=== PATIENT | female | born 1950 | race Caucasian/White ===

== ENCOUNTER 2021-07-10 09:48 | Day surgery (SDC) | payer OTHER, BC ==
[2021-07-04 12:20] VITALS: BMI 28.3
[2021-07-10] MEDS: TROPICAMIDE 1% OPHTH SOLN 15 ML BOTTLE ONE ×3 (11:00→11:10)
[2021-07-10] MEDS: CYCLOPENTOLATE 2% OPHTH SOLN 2 ML BOTTLE ONE ×3 (11:00→11:10)
[2021-07-10] MEDS: PHENYLEPHRINE 2.5% OPHTH SOLN 15 ML BOTTLE ONE ×3 (11:00→11:10)
[2021-07-10] MEDS: CIPROFLOXACIN 0.3% EYE DROPS 5 ML BOTTLE ONE ×3 (11:00→11:10)
[2021-07-10 11:11] VITALS: TEMP 98.1
[2021-07-10] MEDS ORDERED: MIDAZOLAM HCL 2 MG/2 ML SINGLE DOSE VIAL ONE (11:40)
[2021-07-10] MEDS ORDERED: TETRACAINE 0.5% OPHTH SOLN 2 ML BOTTLE ONE (12:31)
[2021-07-10] MEDS ORDERED: LIDOCAINE 1% P/F 10 MG/ML VIAL ONE (12:31)
[2021-07-10] MEDS ORDERED: CARBACHOL 0.01% INTRA-OCULAR 1.5 ML VIAL ONE (12:32)
[2021-07-10] MEDS ORDERED: BSS (NA/CA/MG/K) BALANCED SALT SOLUTION OPHTH SOLN 15 ML BOTTLE ONE (12:32)
[2021-07-10] MEDS ORDERED: NEO/POLYMYX B SULF/DEXAMETH OPHTHALMIC 5ML BOTTLE ONE (12:32)
[2021-07-10 13:20] VITALS: BP 120/78; PULSE 77
== END 2021-07-10 13:00 | disposition home or self-care (01) ==
LOC: FASU 09:48
PROVIDERS: ATTEND Ophthalmology
PROC: 08RJ3JZ Replacement of Right Lens with Synthetic Substitute, Percutaneous Approach (ICD-10-PCS; principal; 2021-07-10 12:12)
DX: H26.8 Other specified cataract (principal)

== ENCOUNTER 2021-08-28 08:55 | Day surgery (SDC) | payer OTHER, BC ==
[2021-08-22 12:09] VITALS: BMI 28.3
[2021-08-28] MEDS ORDERED: PHENYLEPHRINE 2.5% OPHTH SOLN 15 ML BOTTLE ONE (09:37)
[2021-08-28] MEDS ORDERED: CYCLOPENTOLATE 2% OPHTH SOLN 2 ML BOTTLE ONE (09:37)
[2021-08-28] MEDS ORDERED: CIPROFLOXACIN 0.3% EYE DROPS 5 ML BOTTLE ONE (09:37)
[2021-08-28] MEDS ORDERED: TROPICAMIDE 1% OPHTH SOLN 15 ML BOTTLE ONE (09:37)
[2021-08-28] MEDS ORDERED: MIDAZOLAM HCL 2 MG/2 ML SINGLE DOSE VIAL ONE (10:36)
[2021-08-28] MEDS ORDERED: BSS (NA/CA/MG/K) BALANCED SALT SOLUTION OPHTH SOLN 15 ML BOTTLE ONE (10:50)
[2021-08-28] MEDS ORDERED: CARBACHOL 0.01% INTRA-OCULAR 1.5 ML VIAL ONE (10:50)
[2021-08-28] MEDS ORDERED: NEO/POLYMYX B SULF/DEXAMETH OPHTHALMIC 5ML BOTTLE ONE (10:50)
[2021-08-28] MEDS ORDERED: TETRACAINE 0.5% OPHTH SOLN 2 ML BOTTLE ONE (10:50)
[2021-08-28 11:35] VITALS: TEMP 97.9
[2021-08-28 12:03] VITALS: BP 156/65; PULSE 81
== END 2021-08-28 12:00 | disposition home or self-care (01) ==
LOC: FASU 08:55
PROVIDERS: ATTEND Ophthalmology
PROC: 08RK3JZ Replacement of Left Lens with Synthetic Substitute, Percutaneous Approach (ICD-10-PCS; principal; 2021-08-28 11:06)
DX: H26.8 Other specified cataract (principal)
CPT/HCPCS: 66984; V2632; 82962

== ENCOUNTER 2021-10-23 12:09 | Emergency (ER) | payer OTHER, BC ==
[2021-10-23 12:20] VITALS: BP 163/84; PULSE 82; TEMP 98.5; BMI 28.8
== END 2021-10-23 13:10 | disposition home or self-care (01) ==
LOC: FER 12:09
DX: Z04.1 Encounter for examination and observation following transport accident (principal); V89.2XXA Person injured in unspecified motor-vehicle accident, traffic, initial encounter
CPT/HCPCS: 82962; 99283-25